=== PATIENT | male | born 1985 | race Caucasian/White ===

== ENCOUNTER 2019-02-05 21:52 | Emergency (ER) | payer OTHER, BC ==
[~2019-02-05] VITALS: Ht 175.3 cm; Wt 77.1 kg
[2019-02-05] MEDS ORDERED: ULTRAM50 MG (22:04)
[2019-02-05] MEDS ORDERED: NORCO 5-325 TA1 EACH PO (22:48)
[2019-02-05 23:13] VITALS: BP 126/94
== END 2019-02-05 23:13 | disposition home or self-care (01) ==
LOC: M.ERS 21:52
DX: Z88.0 Allergy status to penicillin (principal); F17.210 Nicotine dependence, cigarettes, uncomplicated; S62.397A Other fracture of fifth metacarpal bone, left hand, initial encounter for closed fracture; X50.9XXA Other and unspecified overexertion or strenuous movements or postures, initial encounter; Y93.89 Activity, other specified; Y92.89 Other specified places as the place of occurrence of the external cause; Y99.8 Other external cause status